=== PATIENT | male | born 1955 | race Caucasian/White ===

== ENCOUNTER 2016-12-24 07:33 | Emergency (ER) | payer OTHER ==
[~2016-12-24] VITALS: Ht 175.3 cm; Wt 88.5 kg
[~2016-12-24 07:33] MED LIST: ALPR1TAB7 PO; CLON0.2T PO; LOSA50TA6 PO; METO-169 PO; QUE100T GT
[2016-12-24 07:58] VITALS: BP 106/71
== END 2016-12-24 09:02 | disposition home or self-care (01) ==
LOC: ER 07:40
DX: I10 Essential (primary) hypertension (principal); I25.10 Atherosclerotic heart disease of native coronary artery without angina pectoris; F17.210 Nicotine dependence, cigarettes, uncomplicated; J44.9 Chronic obstructive pulmonary disease, unspecified; E78.5 Hyperlipidemia, unspecified; Z88.8 Allergy status to other drugs, medicaments and biological substances; Z79.899 Other long term (current) drug therapy

== ENCOUNTER 2017-08-02 07:58 | Emergency (ER) | payer MEDICAID ==
[~2017-08-02] VITALS: Ht 175.3 cm; Wt 83.9 kg
[2017-08-02 08:11] VITALS: BP 135/88
== END 2017-08-02 08:42 | disposition home or self-care (01) ==
LOC: ER 07:58
DX: F41.9 Anxiety disorder, unspecified (principal); J44.9 Chronic obstructive pulmonary disease, unspecified; E78.5 Hyperlipidemia, unspecified; I10 Essential (primary) hypertension; F17.210 Nicotine dependence, cigarettes, uncomplicated; Z86.73 Personal history of transient ischemic attack (TIA), and cerebral infarction without residual deficits; Z88.8 Allergy status to other drugs, medicaments and biological substances

== ENCOUNTER 2017-08-19 07:33 | Emergency (ER) | payer MEDICAID, OTHER ==
[~2017-08-19] VITALS: Ht 175.3 cm; Wt 86.2 kg
[2017-08-19 07:48] VITALS: BP 138/83
== END 2017-08-19 08:13 | disposition home or self-care (01) ==
LOC: ER 07:33
DX: I10 Essential (primary) hypertension (principal); F41.9 Anxiety disorder, unspecified; I25.10 Atherosclerotic heart disease of native coronary artery without angina pectoris; J44.9 Chronic obstructive pulmonary disease, unspecified; F17.210 Nicotine dependence, cigarettes, uncomplicated; E78.5 Hyperlipidemia, unspecified; Z88.8 Allergy status to other drugs, medicaments and biological substances; Z79.899 Other long term (current) drug therapy; Z90.49 Acquired absence of other specified parts of digestive tract; Z76.0 Encounter for issue of repeat prescription

== ENCOUNTER 2017-10-26 23:08 | Emergency (ER) | payer OTHER ==
[~2017-10-26] VITALS: Ht 175.3 cm; Wt 88.5 kg
[2017-10-27 02:40] VITALS: BP 127/78
== END 2017-10-27 03:16 | disposition home or self-care (01) ==
LOC: ER 23:10
DX: F41.9 Anxiety disorder, unspecified (principal); J44.9 Chronic obstructive pulmonary disease, unspecified; E78.5 Hyperlipidemia, unspecified; I10 Essential (primary) hypertension; F17.210 Nicotine dependence, cigarettes, uncomplicated; Z88.8 Allergy status to other drugs, medicaments and biological substances; Z90.89 Acquired absence of other organs
CPT/HCPCS: 71010

== ENCOUNTER 2017-11-13 07:26 | Emergency (ER) | payer MEDICAID, OTHER ==
[~2017-11-13] VITALS: Ht 175.3 cm; Wt 83.9 kg
[2017-11-13 09:42] VITALS: BP 143/86
== END 2017-11-13 09:48 | disposition home or self-care (01) ==
LOC: ER 07:26
DX: I10 Essential (primary) hypertension (principal); I25.10 Atherosclerotic heart disease of native coronary artery without angina pectoris; J44.9 Chronic obstructive pulmonary disease, unspecified; E78.5 Hyperlipidemia, unspecified; F17.210 Nicotine dependence, cigarettes, uncomplicated; Z76.0 Encounter for issue of repeat prescription; Z88.8 Allergy status to other drugs, medicaments and biological substances

== ENCOUNTER 2018-01-06 07:13 | Emergency (ER) | payer MEDICAID, OTHER ==
[~2018-01-06] VITALS: Ht 175.3 cm; Wt 97.5 kg
[2018-01-06 10:03] LABS: Urine Bacteria NONE SEEN /hpf (None Seen); Urine Blood Negative /uL (Negative); Urine Specific Gravity 1.005 (1.001-1.035); Urine WBC 1 /hpf (0 - 3)
[2018-01-06 10:12] LABS: Basophils # (auto) 0 uL; Basophils % (auto) 0.4 % (0.0-2.0); Eosinophils # (auto) 0.1 uL; Eosinophils % (auto) 0.9 % (0.0-7.0); Hematocrit 42.6 % (41.0-53.0); Hemoglobin 14.1 g/dL (13.5-17.5); Lymphocytes # (auto) 1.2 uL; Lymphocytes % (auto) 16.6 % (10.0-50.0); Mean Corpuscular Hemoglobin 30.6 pg (28.0-32.0); Mean Corpuscular Hgb Conc. 33.1 g/dL (32.0-36.0); Mean Corpuscular Volume 92.4 fL (80.0-100.0); Monocytes # (auto) 0.4 uL; Monocytes % (auto) 5.8 % (0.0-12.0); Neutrophils # (auto) 5.3 uL; Neutrophils % (auto) 76.3 % (37.0-80.0); Nucleated Red Blood Cells % 0.1 %; Platelet Count (auto) 220 10^3/uL (140-450); Red Blood Cells 4.61 10^6/uL (4.5-5.90); Red Cell Distribution Width 13.8 % (11.8-14.3)
[2018-01-06 10:15] LABS: Alcohol, Urine < 3.0 mg/dL (0-5); Amphetamine Screen, Urine NEGATIVE (NEGATIVE); Barbiturate Scree,Urine NEGATIVE (NEGATIVE); Benzodiazephine Screen, Urine POSITIVE (NEGATIVE); Cannabinoid Screen, Urine NEGATIVE (NEGATIVE); Cocaine Screen, Urine NEGATIVE (NEGATIVE); Opiate Scree,Urine NEGATIVE (NEGATIVE); Phencyclidine Screen, Urine NEGATIVE (NEGATIVE)
[2018-01-06 10:27] LABS: INR 1.03 (0.9-1.15); Partial Thromboplastin Time 27.2 sec (22.64-33.71); Prothrombin Time 11.2 sec (9.37-12.3)
[2018-01-06 10:41] LABS: Alanine Aminotransferase 51 U/L (16-61); Albumin 3.7 g/dL (3.4-5.0); Alkaline Phosphatase 84 U/L (45-117); Anion Gap 10 (5-15); Aspartate Aminotransferase 37 U/L (15-37); BUN/Creatinine Ratio 10.6; Bilirubin, Total 0.3 mg/dL (0.2-1.0); Blood Urea Nitrogen 15 mg/dL (7-18); Calcium 9.2 mg/dL (8.5-10.1); Carbon Dioxide 25 mmol/L (21-32); Chloride 105 mmol/L (98-107); GFR African American 66 mL/min; GFR Non-African American 54 mL/min; Glucose 81 mg/dL (74-106); Potassium 4.2 mmol/L (3.5-5.1); Sodium 140 mmol/L (136-145); Total Protein 8.1 g/dL (6.4-8.2)
[2018-01-06 11:27] VITALS: BP 114/65
== END 2018-01-06 11:28 | disposition home or self-care (01) ==
LOC: ER 07:13
DX: R53.1 Weakness (principal); I10 Essential (primary) hypertension; R06.02 Shortness of breath; F17.210 Nicotine dependence, cigarettes, uncomplicated; Z90.49 Acquired absence of other specified parts of digestive tract; Z76.0 Encounter for issue of repeat prescription; Z88.8 Allergy status to other drugs, medicaments and biological substances
CPT/HCPCS: 36415; 70450; 71045; 80053; 80307; 81001; 82140; 82962; 84484; 85025; 85610; 85730; 93005

== ENCOUNTER 2018-02-21 08:54 | Emergency (ER) | payer MEDICAID ==
[~2018-02-21] VITALS: Ht 175.3 cm; Wt 83.9 kg
[2018-02-21 09:39] VITALS: BP 116/78
== END 2018-02-21 10:11 | disposition home or self-care (01) ==
LOC: ER 08:54
DX: I10 Essential (primary) hypertension (principal); F20.9 Schizophrenia, unspecified; F41.9 Anxiety disorder, unspecified; F17.210 Nicotine dependence, cigarettes, uncomplicated; Z76.0 Encounter for issue of repeat prescription

== ENCOUNTER 2018-03-19 09:42 | Emergency (ER) | payer MEDICAID, OTHER ==
[~2018-03-19] VITALS: Ht 175.3 cm; Wt 86.2 kg
[2018-03-19 09:50] VITALS: BP 139/88
[2018-03-19 10:21] LABS: Basophils # (auto) 0 uL; Basophils % (auto) 0.7 % (0.0-2.0); Eosinophils # (auto) 0.3 uL; Eosinophils % (auto) 5.6 % (0.0-7.0); Hematocrit 47.1 % (41.0-53.0); Hemoglobin 15.6 g/dL (13.5-17.5); Lymphocytes # (auto) 1.2 uL; Lymphocytes % (auto) 24.3 % (10.0-50.0); Mean Corpuscular Hemoglobin 30.6 pg (28.0-32.0); Mean Corpuscular Volume 92.6 fL (80.0-100.0); Monocytes # (auto) 0.4 uL; Monocytes % (auto) 8.1 % (0.0-12.0); Neutrophils % (auto) 61.3 % (37.0-80.0); Nucleated Red Blood Cells % 0.1 %; Platelet Count (auto) 239 10^3/uL (140-450); Red Blood Cells 5.09 10^6/uL (4.5-5.90); Red Cell Distribution Width 14.5 % (11.8-14.3); White Blood Cell 4.9 10^3/uL (4.4-10.8)
[2018-03-19 10:26] LABS: Urine WBC None Seen /hpf (0 - 3)
[2018-03-19 10:39] LABS: Urine Bacteria NONE SEEN /hpf (None Seen); Urine Blood Negative /uL (Negative); Urine Specific Gravity 1.005 (1.001-1.035)
[2018-03-19 10:55] LABS: BUN/Creatinine Ratio 14.4; Bilirubin, Total 0.4 mg/dL (0.2-1.0); Calcium 9.3 mg/dL (8.5-10.1); Magnesium 2.5 mg/dL (1.6-2.6); Potassium 3.9 mmol/L (3.5-5.1)
== END 2018-03-19 13:04 | disposition home or self-care (01) ==
LOC: ER 09:42
DX: R10.31 Right lower quadrant pain (principal); I10 Essential (primary) hypertension; F17.210 Nicotine dependence, cigarettes, uncomplicated; Z76.0 Encounter for issue of repeat prescription
CPT/HCPCS: 36415; 80053; 81001; 83735; 85025; 93005

== ENCOUNTER 2018-05-08 13:45 | Emergency (ER) | payer MEDICAID ==
[~2018-05-08] VITALS: Ht 175.3 cm; Wt 93.0 kg
[2018-05-08 14:09] VITALS: BP 100/72
== END 2018-05-08 14:56 | disposition home or self-care (01) ==
LOC: ER 13:45
DX: I10 Essential (primary) hypertension (principal); F20.9 Schizophrenia, unspecified; F17.210 Nicotine dependence, cigarettes, uncomplicated; Z88.8 Allergy status to other drugs, medicaments and biological substances; Z79.899 Other long term (current) drug therapy; Z90.49 Acquired absence of other specified parts of digestive tract

== ENCOUNTER 2018-10-01 07:43 | Emergency (ER) | payer MEDICAID ==
[~2018-10-01] VITALS: Ht 175.3 cm; Wt 83.9 kg
[~2018-10-01 07:43] MED LIST changes: +ALPR-229 PO; -ALPR1TAB7 PO; +CLON0.1T PO; -CLON0.2T PO; +LOSA-46 PO; -LOSA50TA6 PO; -METO-169 PO; -QUE100T GT; +QUET200T44 PO
[2018-10-01 08:08] VITALS: BP 148/70
== END 2018-10-01 09:15 | disposition home or self-care (01) ==
LOC: ER 07:44
DX: S82.51XA Displaced fracture of medial malleolus of right tibia, initial encounter for closed fracture (principal); J44.9 Chronic obstructive pulmonary disease, unspecified; I10 Essential (primary) hypertension; Z88.8 Allergy status to other drugs, medicaments and biological substances; Z79.899 Other long term (current) drug therapy; Z90.49 Acquired absence of other specified parts of digestive tract; W01.0XXA Fall on same level from slipping, tripping and stumbling without subsequent striking against object, initial encounter; Y93.89 Activity, other specified; Y99.8 Other external cause status; Y92.89 Other specified places as the place of occurrence of the external cause
CPT/HCPCS: 29515; 73610

== ENCOUNTER 2019-01-12 05:26 | Emergency (ER) | payer MEDICAID ==
[~2019-01-12] VITALS: Ht 175.3 cm; Wt 83.9 kg
[2019-01-12 06:09] VITALS: BP 117/78
== END 2019-01-12 07:51 | disposition home or self-care (01) ==
LOC: ER 05:26
DX: I10 Essential (primary) hypertension (principal); J44.9 Chronic obstructive pulmonary disease, unspecified; F41.9 Anxiety disorder, unspecified; F32.9 Major depressive disorder, single episode, unspecified; Z90.89 Acquired absence of other organs; Z88.8 Allergy status to other drugs, medicaments and biological substances; Z76.0 Encounter for issue of repeat prescription

== ENCOUNTER 2019-02-11 11:13 | Emergency (ER) | payer MEDICAID, OTHER ==
[~2019-02-11] VITALS: Ht 177.8 cm; Wt 90.7 kg
[2019-02-11 12:18] LABS: Basophils # (auto) 0 uL; Basophils % (auto) 0.7 % (0.0-2.0); Eosinophils # (auto) 0.1 uL; Eosinophils % (auto) 3.2 % (0.0-7.0); Hematocrit 42.1 % (41.0-53.0); Hemoglobin 14.1 g/dL (13.5-17.5); Lymphocytes # (auto) 1.1 uL; Lymphocytes % (auto) 26.8 % (10.0-50.0); Mean Corpuscular Hemoglobin 30.6 pg (28.0-32.0); Mean Corpuscular Hgb Conc. 33.5 g/dL (32.0-36.0); Mean Corpuscular Volume 91.2 fL (80.0-100.0); Monocytes # (auto) 0.3 uL; Neutrophils # (auto) 2.4 uL; Neutrophils % (auto) 62.3 % (37.0-80.0); Platelet Count (auto) 170 10^3/uL (140-450); Red Blood Cells 4.62 10^6/uL (4.5-5.90); Red Cell Distribution Width 13.3 % (11.8-14.3); White Blood Cell 3.9 10^3/uL (4.4-10.8)
[2019-02-11 12:34] LABS: INR 1.11 (0.9-1.15); Prothrombin Time 11.8 sec (9.27-12.13)
[2019-02-11] MEDS: ONDANSETRON HCL 4 MG/2 ML VIAL IV ONE (12:43)
[2019-02-11] MEDS: SODIUM CHLORIDE 0.9% 1,000 ML IV ONE (12:43)
[2019-02-11] MEDS: MORPHINE SULF INJ 2 MG/ML SYRINGE 1ML IV ONE (12:44)
[2019-02-11 13:21] LABS: Chloride 105 mmol/L (98-107); Potassium 3.6 mmol/L (3.5-5.1); Sodium 138 mmol/L (136-145)
[2019-02-11 13:30] LABS: Alanine Aminotransferase 28 U/L (16-61); Albumin 3.6 g/dL (3.4-5.0); Alkaline Phosphatase 96 U/L (45-117); Anion Gap 6 (5-15); Aspartate Aminotransferase 21 U/L (15-37); BUN/Creatinine Ratio 7.9; Bilirubin, Total 0.3 mg/dL (0.2-1.0); Blood Urea Nitrogen 10 mg/dL (7-18); Calcium 8.7 mg/dL (8.5-10.1); Carbon Dioxide 27 mmol/L (21-32); GFR African American 74 mL/min; GFR Non-African American 61 mL/min; Glucose 117 mg/dL (74-106); Total Protein 7.5 g/dL (6.4-8.2)
[2019-02-11 14:40] VITALS: BP 129/82
[2019-02-12] MEDS ORDERED: QUET300T14 PO (16:06)
[2019-02-13] MEDS ORDERED: METH10T PO (07:13)
[2019-02-13] MEDS ORDERED: METH-973 PO (07:29)
== END 2019-02-11 16:49 | disposition left against medical advice (07) ==
LOC: EDBD 11:13 → ER 11:16
DX: R07.9 Chest pain, unspecified (principal); J44.9 Chronic obstructive pulmonary disease, unspecified; I10 Essential (primary) hypertension; Z88.8 Allergy status to other drugs, medicaments and biological substances
CPT/HCPCS: 36415; 71046; 80053; 83735; 83880; 84443; 84484; 85025; 85610; 85730; 93005; 94761; 96374; 96375; 99284; J2270; J2405; J7030

== ENCOUNTER 2019-03-17 07:13 | Emergency (ER) | payer MEDICAID ==
[~2019-03-17] VITALS: Ht 175.3 cm; Wt 86.2 kg
[~2019-03-17 07:13] MED LIST changes: +ASPI81CH43 PO; +ATOR20TA50 PO; +METH-973 PO
[2019-03-17 08:20] VITALS: BP 123/74
[2019-03-17] MEDS ORDERED: HYDROcodone-ACET 5/325MG TAB PO ONE (08:30)
[2019-03-17] MEDS ORDERED: TETANUS-DIPTH-ACEL PERTUSSIS 0.5ML SYRG IM ONE (08:30)
== END 2019-03-17 09:07 | disposition home or self-care (01) ==
LOC: ER 07:13
DX: S22.32XA Fracture of one rib, left side, initial encounter for closed fracture (principal); T63.001A Toxic effect of unspecified snake venom, accidental (unintentional), initial encounter; L03.311 Cellulitis of abdominal wall; J44.9 Chronic obstructive pulmonary disease, unspecified; I10 Essential (primary) hypertension; F41.9 Anxiety disorder, unspecified; F32.9 Major depressive disorder, single episode, unspecified; W01.0XXA Fall on same level from slipping, tripping and stumbling without subsequent striking against object, initial encounter; Y93.89 Activity, other specified; Y92.89 Other specified places as the place of occurrence of the external cause; Y99.8 Other external cause status
CPT/HCPCS: 71101; 90471; 90715

== ENCOUNTER 2019-03-22 07:39 | Emergency (ER) | payer MEDICAID ==
[~2019-03-22] VITALS: Ht 175.3 cm; Wt 83.9 kg
[2019-03-22 07:52] VITALS: BP 110/75
[2019-03-22] MEDS ORDERED: KETOROLAC TROMETH 60MG/2ML VIAL IM ONE (09:00)
== END 2019-03-22 10:09 | disposition home or self-care (01) ==
LOC: ER 07:39
DX: M25.551 Pain in right hip (principal); I10 Essential (primary) hypertension; J44.9 Chronic obstructive pulmonary disease, unspecified; Z90.49 Acquired absence of other specified parts of digestive tract; Z79.82 Long term (current) use of aspirin; Z79.899 Other long term (current) drug therapy
CPT/HCPCS: 73502; 96372; 99283; J1885

== ENCOUNTER 2019-07-05 08:00 | Emergency (ER) | payer MEDICAID ==
[~2019-07-05] VITALS: Ht 175.3 cm; Wt 83.9 kg
[~2019-07-05 08:00] MED LIST changes: -LOSA-46 PO; +LOSA-69 PO
[2019-07-05 08:10] VITALS: BP 136/79
== END 2019-07-05 09:10 | disposition home or self-care (01) ==
LOC: ER 08:00
DX: I10 Essential (primary) hypertension (principal); Z76.0 Encounter for issue of repeat prescription; J44.9 Chronic obstructive pulmonary disease, unspecified; F17.210 Nicotine dependence, cigarettes, uncomplicated; Z79.899 Other long term (current) drug therapy

== ENCOUNTER 2020-08-12 07:16 | Emergency (ER) | payer MEDICARE, MEDICAID ==
[~2020-08-12] VITALS: Ht 175.3 cm; Wt 88.5 kg
[~2020-08-12 07:16] MED LIST changes: -ALPR-229 PO; +ALPR2TAB6 PO
[2020-08-12 07:24] VITALS: BP 132/79
== END 2020-08-12 08:22 | disposition home or self-care (01) ==
LOC: ER 07:16
DX: I10 Essential (primary) hypertension (principal); J44.9 Chronic obstructive pulmonary disease, unspecified; Z76.0 Encounter for issue of repeat prescription

== ENCOUNTER 2020-10-10 18:59 | Emergency (ER) | payer MEDICARE, MEDICAID ==
[~2020-10-10] VITALS: Ht 175.3 cm; Wt 88.5 kg
[2020-10-10] MEDS ORDERED: LIDOCAINE VISCOUS 2% 15ML UD PO ONE (22:15)
[2020-10-10] MEDS ORDERED: ACETAMINOPHEN/CODEINE#3 (300/30mg) TAB PO ONE (22:30)
[2020-10-10 22:34] VITALS: BP 110/56
== END 2020-10-10 22:49 | disposition home or self-care (01) ==
LOC: ER 19:01
DX: K11.5 Sialolithiasis (principal); I10 Essential (primary) hypertension; B99.9 Unspecified infectious disease; J44.9 Chronic obstructive pulmonary disease, unspecified; Z79.82 Long term (current) use of aspirin; Z79.899 Other long term (current) drug therapy
CPT/HCPCS: 70490

== ENCOUNTER 2021-08-15 03:17 | Emergency (ER) | payer MEDICARE, OTHER ==
[~2021-08-15] VITALS: Ht 175.3 cm; Wt 86.2 kg
[2021-08-15 06:32] VITALS: BP 113/79
[2021-08-15] MEDS ORDERED: ONDANSETRON ODT 4 MG TAB PO ONE (06:45)
[2021-08-15] MEDS ORDERED: MORPHINE SULFATE INJECTION 2 MG/ML SYRG IM ONE (06:45)
== END 2021-08-15 07:22 | disposition home or self-care (01) ==
LOC: ER 03:18
DX: K22.70 Barrett's esophagus without dysplasia (principal); R07.0 Pain in throat; G89.29 Other chronic pain; J44.9 Chronic obstructive pulmonary disease, unspecified; I10 Essential (primary) hypertension; F20.9 Schizophrenia, unspecified; Z76.0 Encounter for issue of repeat prescription; Z87.891 Personal history of nicotine dependence; Z79.899 Other long term (current) drug therapy; Z79.82 Long term (current) use of aspirin
CPT/HCPCS: 96372; 99283; J2270; Q0162

== ENCOUNTER 2022-03-12 09:39 | Emergency (ER) | payer MEDICARE, MEDICAID ==
[~2022-03-12] VITALS: Ht 175.3 cm; Wt 88.5 kg
[~2022-03-12 09:39] MED LIST changes: -QUET200T44 PO; +QUET200T45 PO
[2022-03-12 10:43] LABS: Basophils # (auto) 0.1 10 ^3/uL (0-0.2); Basophils % (auto) 1.1 % (0.0-2.0); Eosinophils # (auto) 0.6 10 ^3/uL (0-0.8); Eosinophils % (auto) 11.2 % (0.0-7.0); Hematocrit 47.8 % (41.0-53.0); Hemoglobin 15.8 g/dL (13.5-17.5); Lymphocytes # (auto) 1.6 10 ^3/uL (0.4-5.4); Mean Corpuscular Hemoglobin 30.8 pg (28.0-32.0); Mean Corpuscular Hgb Conc. 33.1 g/dL (32.0-36.0); Mean Corpuscular Volume 93.2 fL (80.0-100.0); Monocytes # (auto) 0.4 10 ^3/uL (0-1.3); Monocytes % (auto) 8.5 % (0.0-12.0); Neutrophils # (auto) 2.6 10 ^3/uL (1.6-8.6); Neutrophils % (auto) 49.2 % (37.0-80.0); Nucleated Red Blood Cells % 0.5 %; Red Blood Cells 5.12 10^6/uL (4.5-5.90); Red Cell Distribution Width 14.1 % (11.8-14.3); White Blood Cell 5.2 10^3/uL (4.4-10.8)
[2022-03-12] MEDS ORDERED: HYDROcodone-ACET 10/325MG TAB PO ONE (11:00)
[2022-03-12 11:17] LABS: Calcium 9.4 mg/dL (8.5-10.1)
[2022-03-12 11:20] LABS: BUN/Creatinine Ratio 16.7
[2022-03-12] MEDS ORDERED: HYDR-4902 PO (12:01)
[2022-03-12 12:21] VITALS: BP 111/70
== END 2022-03-12 12:24 | disposition home or self-care (01) ==
LOC: ER 09:39
DX: G89.4 Chronic pain syndrome (principal); G62.9 Polyneuropathy, unspecified; I10 Essential (primary) hypertension; J44.9 Chronic obstructive pulmonary disease, unspecified; Z90.49 Acquired absence of other specified parts of digestive tract; Z90.89 Acquired absence of other organs; Z87.891 Personal history of nicotine dependence; Z79.82 Long term (current) use of aspirin; Z79.899 Other long term (current) drug therapy
CPT/HCPCS: 36415; 80048; 85025

== ENCOUNTER 2023-01-05 07:13 | Emergency (ER) | payer MEDICARE, MEDICAID ==
[~2023-01-05] VITALS: Ht 177.8 cm; Wt 84.9 kg
[~2023-01-05 07:13] MED LIST changes: +HYDR-4902 PO
[2023-01-05 07:49] VITALS: BP 135/88
[2023-01-05] MEDS ORDERED: LORA0.5T20 PO ×2 (07:51)
[2023-01-05] MEDS ORDERED: ALPR2TAB2 PO (08:21)
== END 2023-01-05 07:56 | disposition home or self-care (01) ==
LOC: ER 07:13
DX: F41.9 Anxiety disorder, unspecified (principal); I10 Essential (primary) hypertension; J44.9 Chronic obstructive pulmonary disease, unspecified; Z76.0 Encounter for issue of repeat prescription; Z90.49 Acquired absence of other specified parts of digestive tract; Z90.89 Acquired absence of other organs; Z87.891 Personal history of nicotine dependence; Z79.82 Long term (current) use of aspirin; Z79.899 Other long term (current) drug therapy